=== PATIENT | male | born 1975 | race Caucasian/White ===

== ENCOUNTER 2018-09-15 10:21 | Emergency (ER) | payer BC, SELFPAY ==
--- NOTE | 2018-09-15 10:26 | W.ED.GENAD ---
Discharge Plan Disposition Patient Disposition: HOME Condition: Stable Discharge Details Chief Complaint: Abd Prob Clinical Impression: Colitis Primary Care Provider: Nicole Spaulding ED Provider: Alex Gray Home Meds and New Rx's Prescriptions: New metronidazole [Flagyl] 500 mg tablet 500 mg PO TID Qty: 21 RF: 0 ciprofloxacin HCl 500 mg tablet 500 mg PO BID Qty: 14 RF: 0 ondansetron 4 mg tablet,disintegrating 4 mg PO TID PRN (Reason: nausea and vomiting) 5 Days Qty: 30 RF: 0 No Action lamotrigine 150 MG tablet 150 mg PO DAILY RF: 0 cimetidine 800 MG tablet 800 mg PO DAILY RF: 0 aspirin 81 MG tablet,delayed release (DR/EC) 81 mg PO DAILY RF: 0 metformin [Glucophage] 1,000 MG tablet 1,000 mg PO BID RF: 0 levothyroxine [Synthroid] 150 MCG tablet 150 mcg PO DAILY RF: 0 Lantus Solostar U-100 Insulin 100 UNIT/1 ML insulin pen 100 units SQ BID RF: 0 PEN NEEDLES Sub-Q BID RF: 0 Humalog U-100 Insulin 100 UNIT/1 ML solution 15 unit SQ PRN RF: 0 atorvastatin 40 MG tablet 40 mg PO DAILY RF: 0 colchicine [Colcrys] 0.6 MG tablet 0.6 mg PO DAILY Qty: 9 RF: 0 Discharge Instructions Instructions: Colitis (ED) Additional Instructions: follow up with your primary care provider especially if symptoms continue next week if you have severe worsening of pain or persistent vomit return to the emergency department for reevaluation Medical Decision Making 43 yo male with hx of DM, HLD, no prior abdominal surgeries, comes in with chief complaint of lower abdominal pain since yesterday. No vomit, fevers, chills. CAn't think of anything that makes it better or worse, has never had pain like this before. HAs tenderness without guarding and rebound in the lower abdomen right and left sided. No testicle pain or swelling. Multiple different potential etiologies of his pain, will obtain lab work and CT to eval further pt labs show wbc of 18, otherwise no acute findings. CT per Dr. Crook shows coliits and possible diverticulitis. He is stable for outpatient management, will prescribe abx and advised f/u with pcp and return precautions given. Has only mild tenderness and no guarding and no pain out of proportion to exam so doubt ischemic colitis Differential Diagnosis diverticulitis, appendicitis, kidney stone Imaging Data Radiologic Study: Attestation: I personally reviewed and interpreted this imaging study as follows: Imaging: CT Scan Radiologist's impression: colits and possible diverticulitis per Dr. crook Lab Data Lab results reviewed: Yes I reviewed the patient's lab results. HPI General Mode of arrival: ambulatory. Date/Time Provider Initiated Documentation: 09/15/18 10:25. Limitations to Documentation: no limitations. Information obtained by: patient. History of Present Illness 43 year old M presents to the emergency department with the chief complaint of lower abdominal pain, described as moderate, with intensity rated at 6. Quality is described as stabbing and aching, and is localized to the abdomen. Patient reports no radiation. Patient started experiencing this day(s) (1) and it has been constant. No relieving factors improve symptom(s), No exacerbating factors reported . Patient notes no other symptoms.. Patient did receive the following treatments prior to arrival, none Related Data Home Medications Medication Instructions Recorded Confirmed Pen [place] SUB-Q BID 01/16/13 09/11/14 aspirin 81 mg PO DAILY tab-cap 01/16/13 09/15/18 cimetidine 800 mg PO DAILY tab-cap 01/16/13 09/15/18 insulin glargine [Lantus Solostar] 100 units SQ BID 01/16/13 09/15/18 lamotrigine 150 mg PO DAILY tab-cap 01/16/13 09/15/18 levothyroxine [Synthroid] 150 mcg PO DAILY tab-cap 01/16/13 09/15/18 metformin [Glucophage] 1,000 mg PO BID tab-cap 01/16/13 09/15/18 Humalog U-100 Insulin 15 unit SQ PRN vial 01/25/13 09/15/18 atorvastatin 40 mg PO DAILY tab-cap 07/21/16 09/15/18 colchicine [Colcrys] 0.6 mg PO DAILY #9 tab 01/10/17 09/15/18 ciprofloxacin HCl 500 mg PO BID #14 tab 09/15/18 metronidazole [Flagyl] 500 mg PO TID #21 tab 09/15/18 ondansetron 4 mg PO TID PRN 5 Days #30 tab 09/15/18 Previous Rx's Medication Instructions Recorded colchicine [Colcrys] 0.6 mg PO DAILY #9 tab 01/10/17 ciprofloxacin HCl 500 mg PO BID #14 tab 09/15/18 metronidazole [Flagyl] 500 mg PO TID #21 tab 09/15/18 ondansetron 4 mg PO TID PRN 5 Days #30 tab 09/15/18 Allergies Allergy/AdvReac Type Severity Reaction Status Date / Time No Known Allergies Allergy Unverified 09/15/18 10:31 Review of Systems Review of Systems All systems reviewed & are unremarkable except as noted in HPI and below Constitutional Denies chills, Denies fever(s) and Denies weakness Eyes Denies loss of vision ENT Denies change in voice Cardiovascular Denies chest pain and Denies dyspnea Respiratory Denies dyspnea Gastrointestinal Denies nausea and Denies vomiting Genitourinary Denies dysuria Musculoskeletal Denies joint swelling Integumentary/Breasts Denies rash Neurologic Denies loss of vision and Denies weakness Psychiatric Denies depression [facility] Surgical History Cholecystectomy Open Carpal Tunnel release Social History Smoking/Tobacco Use Status: Former Tobacco Use Exam Const General: no acute distress Orientation: alert HENMT Head: normal to inspection Ears: external ears normal General nose exam: external nose normal Mouth: moist mucous membranes Eyes General: appearance normal, both eyes and all related structures Neck Neck: normal visual inspection Resp Effort & Inspection: normal respiratory effort and able to speak in complete sentences Cardio Rate: regular rate GI Inspection: no abdominal wall ecchymosis Palpation: soft Skin General skin exam: no rashes or lesions noted Neuro General: alert and oriented x3 Extrem General: normal to inspection Psych Mental Status: mental status grossly normal
[2018-09-15 10:29] VITALS: BP 134/76; PULSE 93; RESP 16; TEMP 37.1; O2SAT 100
--- NOTE | 2018-09-15 10:35 | DI.CT_ITS ---
SYMPTOMS/DIAGNOSIS: LOWER ABDOMINAL PAIN CT SCAN OF THE ABDOMEN AND PELVIS: CT scan of the abdomen and pelvis was performed following the uneventful administration of intravenous contrast material. No priors for comparison. The visualized lung bases are clear. The liver, spleen, pancreas and adrenal glands are unremarkable. The patient is status post cholecystectomy. No biliary ductal dilatation is seen. The portal, superior mesenteric and splenic veins are patent. The abdominal aorta is of normal caliber. No significant abdominal or pelvic adenopathy, ascites or pneumoperitoneum is seen. The kidneys show normal and symmetric enhancement. No solid renal mass or obstruction is seen. The urinary bladder is intact. The reproductive organs are unremarkable. There is bowel wall thickening seen in the mid sigmoid colon. There do appear to be a few diverticula in the region. Pericolonic inflammatory changes are present. Primary diagnostic concern is for acute diverticulitis and nonspecific inflammatory infectious colitis can not be excluded. The remainder of the bowel shows no acute abnormality. There is a normal appendix present. Mild degenerative changes are seen in the spine. IMPRESSION: Findings most suggestive of colitis in the sigmoid colon. Primary diagnostic concern is for acute diverticulitis. Other nonspecific inflammatory infectious colitis can not be excluded. Follow up examination to document resolution of the inflammation is recommended in this patient. The findings were discussed with Dr. Gray of the emergency department on the date of the examination.
[2018-09-15 10:39] LABS: Bilirubin Negative (Negative); Blood Negative (Negative); Clarity Clear; Glucose 100 mg/dL (Negative); Ketones Negative (Negative); Leukocyte Esterase Negative (Negative); Nitrite Negative (Negative); Specific Gravity >= 1.030 (1.005-1.025); Urobilinogen 0.2 EU/dL (Up TO 0.2); pH 5.5 (5-8)
--- NOTE | 2018-09-15 10:40 | ED.GENADUL_ITS ---
Discharge Plan Disposition Patient Disposition: HOME Condition: Stable Discharge Details Chief Complaint: Abd Prob Clinical Impression: Colitis Primary Care Provider: Nicole Spaulding ED Provider: Alex Gray Home Meds and New Rx's Prescriptions: New metronidazole [Flagyl] 500 mg tablet 500 mg PO TID Qty: 21 RF: 0 ciprofloxacin HCl 500 mg tablet 500 mg PO BID Qty: 14 RF: 0 ondansetron 4 mg tablet,disintegrating 4 mg PO TID PRN (Reason: nausea and vomiting) 5 Days Qty: 30 RF: 0 No Action lamotrigine 150 MG tablet 150 mg PO DAILY RF: 0 cimetidine 800 MG tablet 800 mg PO DAILY RF: 0 aspirin 81 MG tablet,delayed release (DR/EC) 81 mg PO DAILY RF: 0 metformin [Glucophage] 1,000 MG tablet 1,000 mg PO BID RF: 0 levothyroxine [Synthroid] 150 MCG tablet 150 mcg PO DAILY RF: 0 Lantus Solostar U-100 Insulin 100 UNIT/1 ML insulin pen 100 units SQ BID RF: 0 PEN NEEDLES Sub-Q BID RF: 0 Humalog U-100 Insulin 100 UNIT/1 ML solution 15 unit SQ PRN RF: 0 atorvastatin 40 MG tablet 40 mg PO DAILY RF: 0 colchicine [Colcrys] 0.6 MG tablet 0.6 mg PO DAILY Qty: 9 RF: 0 Discharge Instructions Instructions: Colitis (ED) Additional Instructions: follow up with your primary care provider especially if symptoms continue next week if you have severe worsening of pain or persistent vomit return to the emergency department for reevaluation Medical Decision Making 43 yo male with hx of DM, HLD, no prior abdominal surgeries, comes in with chief complaint of lower abdominal pain since yesterday. No vomit, fevers, chills. CAn't think of anything that makes it better or worse, has never had pain like this before. HAs tenderness without guarding and rebound in the lower abdomen right and left sided. No testicle pain or swelling. Multiple different potential etiologies of his pain, will obtain lab work and CT to eval further pt labs show wbc of 18, otherwise no acute findings. CT per Dr. Crook shows coliits and possible diverticulitis. He is stable for outpatient management, will prescribe abx and advised f/u with pcp and return precautions given. Has only mild tenderness and no guarding and no pain out of proportion to exam so doubt ischemic colitis Differential Diagnosis diverticulitis, appendicitis, kidney stone Imaging Data Radiologic Study: Attestation: I personally reviewed and interpreted this imaging study as follows: Imaging: CT Scan Radiologist's impression: colits and possible diverticulitis per Dr. crook Lab Data Lab results reviewed: Yes I reviewed the patient's lab results. HPI General Mode of arrival: ambulatory . Date/Time Provider Initiated Documentation: 09/15/18 10:25 . Limitations to Documentation: no limitations . Information obtained by: patient . History of Present Illness 43 year old M pr esents to the emergency department with the chief complaint of lower abdominal pain, described as moderate, with intensity rated at 6. Quality is described as stabbing and aching, and is localized to the abdomen. Patient reports no radiation. Patient started experiencing this day(s) (1) and it has been constant. No relieving factors improve symptom(s), No exacerbating factors reported . Patient notes no other symptoms.. Patient did receive the following treatments prior to arrival, none Related Data Home Medications Medication Instructions Recorded Confirmed Pen [place] SUB-Q BID 01/16/13 09/11/14 aspirin 81 mg PO DAILY tab-cap 01/16/13 09/15/18 cimetidine 800 mg PO DAILY tab-cap 01/16/13 09/15/18 insulin glargine [Lantus Solostar] 100 units SQ BID 01/16/13 09/15/18 lamotrigine 150 mg PO DAILY tab-cap 01/16/13 09/15/18 levothyroxine [Synthroid] 150 mcg PO DAILY tab-cap 01/16/13 09/15/18 metformin [Glucophage] 1,000 mg PO BID tab-cap 01/16/13 09/15/18 Humalog U-100 Insulin 15 unit SQ PRN vial 01/25/13 09/15/18 atorvastatin 40 mg PO DAILY tab-cap 07/21/16 09/15/18 colchicine [Colcrys] 0.6 mg PO DAILY #9 tab 01/10/17 09/15/18 ciprofloxacin HCl 500 mg PO BID #14 tab 09/15/18 metronidazole [Flagyl] 500 mg PO TID #21 tab 09/15/18 ondansetron 4 mg PO TID PRN 5 Days #30 tab 09/15/18 Previous Rx's Medication Instructions Recorded colchicine [Colcrys] 0.6 mg PO DAILY #9 tab 01/10/17 ciprofloxacin HCl 500 mg PO BID #14 tab 09/15/18 metronidazole [Flagyl] 500 mg PO TID #21 tab 09/15/18 ondansetron 4 mg PO TID PRN 5 Days #30 tab 09/15/18 Allergies Allergy/AdvReac Type Severity Reaction Status Date / Time No Known Allergies Allergy Unverified 09/15/18 10:31 Review of Systems Review of Systems All systems reviewed & are unremarkable except as noted in HPI and below Constitutional Denies chills, Denies fever(s) and Denies weakness Eyes Denies loss of vision ENT Denies change in voice Cardiovascular Denies chest pain and Denies dyspnea Respiratory Denies dyspnea Gastrointestinal Denies nausea and Denies vomiting Genitourinary Denies dysuria Musculoskeletal Denies joint swelling Integumentary/Breasts Denies rash Neurologic Denies loss of vision and Denies weakness Psychiatric Denies depression [facility] Surgical History Cholecystectomy Open Carpal Tunnel release Social History Smoking/Tobacco Use Status: Former Tobacco Use Exam Const General: no acute distress Orientation: alert HENMT Head: normal to inspection Ears: external ears normal General nose exam: external nose normal Mouth: moist mucous membranes Eyes General: appearance normal, both eyes and all related structures Neck Neck: normal visual inspection Resp Effort & Inspection: normal respiratory effort and able to speak in complete sentences Cardio Rate: regular rate GI Inspection: no abdominal wall ecchymosis Palpation: soft Skin General skin exam: no rashes or lesions noted Neuro General: alert and oriented x3 Extrem General: normal to inspection Psych Mental Status: mental status grossly normal
[2018-09-15] MEDS: Normal Saline 1,000 ML 1000 ML IV (10:45)
[2018-09-15] MEDS: Ketorolac 15 MG/ML VIAL IVP (10:45)
[2018-09-15 10:48] LABS: Abs Immature Grans 0.04 k/cumm (0.0-0.09); Absolute Basophil Count 0.07 k/cumm (0.0-0.2); Absolute Eosinophil Count 0.38 k/cumm (0.0-0.7); Absolute Lymphocyte Count 1.73 k/cumm (1.2-3.4); Absolute Neutrophil Count 13.63 k/cumm (1.2-6.7); Basophils % 0.4; Eosinophils % 2.1; HCT 47.3 % (40.0-50.0); HGB 16.1 g/dL (13.5-17.5); Immature Grans % 0.2; Lymphocytes % 9.6; Mean Corpuscular Hemoglobin 29.3 pg (27.0-33.0); Mean Corpuscular Volume 86.2 fL (80-95); Mean Platelet Volume 9.5 fL (8.0-11.0); Monocytes % 12.2; Neutrophils % 75.5; Platelet Count 339 x1000/uL (130-400); RBC 5.49 m/cumm (4.50-6.00); RBC Distribution Width 13.4 % (11.8-14.1); White Blood Cell Count 18.05 k/cumm (4.4-10.8)
[2018-09-15 10:49] LABS: Bacteria Negative HPF (Negative); C & S Indicated? No; Casts Negative LPF (Negative); Crystals Negative HPF (Negative); Epithelial Cells Rare HPF (Negative); Mucus Moderate (Negative); RBC Negative (0-2); WBC 0-2 HPF (0-5)
[2018-09-15 11:01] LABS: INR 0.9 (0.9-1.1); PTT Activated 23.1 sec (21.0-31.4); Prothrombin Time 9.3 sec (9.3-11.0)
[2018-09-15 11:06] LABS: ALT 32 U/L (12-78); AST 15 U/L (15-37); Albumin 4.1 g/dL (3.4-5.0); Alkaline Phosphatase 112 U/L (46-116); Anion Gap 9.9 mmol/L (3-11); BUN 18 mg/dL (7-18); Bilirubin, Direct 0.18 mg/dL (0.00-0.20); Bilirubin, Total 0.8 mg/dL (0.2-1.0); CO2 29.1 mmol/L (21.0-32.0); CREATININE 1.53 mg/dL (0.70-1.30); Calcium 9.8 mg/dL (8.5-10.1); Chloride 103 mmol/L (98-107); Estimated GFR 50.41 (mL/min/1.73m2); Glucose 137 mg/dL (70-100); Lipase 117 U/L (73-393); Potassium 4.1 mmol/L (3.5-5.1); Sodium 142 mmol/L (136-145); Total Protein 7.9 g/dL (6.4-8.2)
[2018-09-15] MEDS: Omnipaque 350 MG/ML 100 ML BTL IJ (11:18)
[2018-09-15 11:44] VITALS: BP 124/59; PULSE 83; RESP 16; TEMP 37.1; O2SAT 96
== END 2018-09-15 11:44 | disposition home or self-care (01) ==
PROVIDERS: Emergency Provider Emergency Medicine; PCP Nurse Practitioner Family
DX: K52.9 Noninfective gastroenteritis and colitis, unspecified (principal)
CPT/HCPCS: 36415; 80053; 80076; 83690; 96361; 96374; 99285; 74177; 81003; 81015; 85025; 85610; 85730; 99284; J1885; J3490

== ENCOUNTER 2018-10-27 19:51 | Emergency (ER) | payer BC, SELFPAY ==
[2018-10-27 19:58] VITALS: BP 126/63; PULSE 89; RESP 20; TEMP 36.8; O2SAT 90
[2018-10-27 20:04] VITALS: RESP 84; O2SAT 95
--- NOTE | 2018-10-27 20:06 | DI.RAD_ITS ---
SYMPTOM/DIAGNOSIS: COUGH PA AND LATERAL CHEST: There are no prior comparison exams. The heart size is normal. There are patchy infiltrates seen in the right upper and middle lobes. The left lung appears clear. No effusions are seen. IMPRESSION: Right upper and middle lobe infiltrates.
--- NOTE | 2018-10-27 20:07 | ED.GENADUL_ITS ---
Discharge Plan Disposition Patient Disposition: HOME Condition: Stable Discharge Details Chief Complaint: Chest/Rib Clinical Impression: Influenza, CAP (community acquired pneumonia) Primary Care Provider: Nicole Spaulding ED Provider: Alex Gray Home Meds and New Rx's Prescriptions: New oseltamivir 75 mg capsule 75 mg PO BID 5 Days Qty: 10 RF: 0 levofloxacin 750 mg tablet 750 mg PO DAILY 6 Days Qty: 6 RF: 0 Continued lamotrigine 150 MG tablet 150 mg PO DAILY RF: 0 cimetidine 800 MG tablet 800 mg PO DAILY RF: 0 aspirin 81 MG tablet,delayed release (DR/EC) 81 mg PO DAILY RF: 0 metformin [Glucophage] 1,000 MG tablet 1,000 mg PO BID RF: 0 levothyroxine [Synthroid] 150 MCG tablet 150 mcg PO DAILY RF: 0 Lantus Solostar U-100 Insulin 100 UNIT/1 ML insulin pen 100 units SQ BID RF: 0 PEN NEEDLES Sub-Q BID RF: 0 Humalog U-100 Insulin 100 UNIT/1 ML solution 15 unit SQ PRN RF: 0 atorvastatin 40 MG tablet 40 mg PO DAILY RF: 0 colchicine [Colcrys] 0.6 MG tablet 0.6 mg PO DAILY Qty: 9 RF: 0 Discharge Instructions Instructions: Influenza (ED), Community Acquired Pneumonia (ED) Additional Instructions: follow up with your primary care provider within a week drink fluids to stay hydrated if you feel you are becoming more ill, have more shortness of breath or persistent vomit return to the emergency department you can take 1000mg tylenol and 600mg ibuprofen every 6 hours for pain as needed Medical Decision Making 43 yo male with hx of DM, hld, who comes in with about a week of worsening cough, subjective fevers/chills. Denies recent travel, only has chest pain when coughing, denies pain with exertion or other symptoms to suggest acs. He is speaking in full sentences on exam, does have crackles in the right lower lung on exam making CAP likely. Will obtain labs and chest xray and eval for influenza. He is HD stable with o2 sat of 96% on room air on my exam. He has no evidence of dvt and symptoms seem infectious so doubt PE at this time pt's labs show ro[place], wbc of 14, and xray shows right pna and influenza test is postive. He remains HD stable. He would prefer outpatient management rather than admission which I feel is reasonable. Will start abx and tamiflu and advised f/u with pcp and return precuaitons given Differential Diagnosis pna, influenza, bronchitis Imaging Data Radiologic Study: Attestation: I personally reviewed and interpreted this imaging study as follows: Imaging: X-Ray Radiologist's impression: IMPRESSION: Patchy airspace disease, right middle and probably right lower lobes. Most likely pneumonia. Lab Data Lab results reviewed: Yes I reviewed the patient's lab results. HPI General Mode of arrival: ambulatory . Date/Time Provider Initiated Documentation: 10/27/18 19:56 . Limitations to Documentation: no limitations . Information obtained by: patient . History of Present Illness 43 year old M presents to the emergency department with the chief complaint of cough, described as moderate, with intensity rated at 5. Quality is described as aching, and is localized to the chest. Patient reports no radiation. Patient started experiencing this week(s) (1) and it has been constant. No relieving factors improve symptom(s), No exacerbating factors reported . Patient notes fever/chills. Patient did receive the following treatments prior to arrival, none Related Data Home Medications Medication Instructions Recorded Confirmed Lantus Solostar U-100 Insulin 100 units SQ BID 01/16/13 10/27/18 Pen [place] SUB-Q BID 01/16/13 09/11/14 aspirin 81 mg PO DAILY tab-cap 01/16/13 10/27/18 cimetidine 800 mg PO DAILY tab-cap 01/16/13 10/27/18 lamotrigine 150 mg PO DAILY tab-cap 01/16/13 10/27/18 levothyroxine [Synthroid] 150 mcg PO DAILY tab-cap 01/16/13 10/27/18 metformin [Glucophage] 1,000 mg PO BID tab-cap 01/16/13 10/27/18 Humalog U-100 Insulin 15 unit SQ PRN vial 01/25/13 10/27/18 atorvastatin 40 mg PO DAILY tab-cap 07/21/16 10/27/18 colchicine [Colcrys] 0.6 mg PO DAILY #9 tab 01/10/17 09/15/18 levofloxacin 750 mg PO DAILY 6 Days #6 tab 10/27/18 oseltamivir 75 mg PO BID 5 Days #10 cap 10/27/18 Previous Rx's Medication Instructions Recorded colchicine [Colcrys] 0.6 mg PO DAILY #9 tab 01/10/17 levofloxacin 750 mg PO DAILY 6 Days #6 tab 10/27/18 oseltamivir 75 mg PO BID 5 Days #10 cap 10/27/18 Allergies Allergy/AdvReac Type Severity Reaction Status Date / Time No Known Allergies Allergy Unverified 09/15/18 10:31 General Stated Complaint: Chest/Rib RENÉ: 3 Review of Systems Review of Systems All systems reviewed & are unremarkable except as noted in HPI and below Constitutional Denies weakness Eyes Denies loss of vision ENT Denies change in voice Gastrointestinal Denies abdominal pain, Denies nausea and Denies vomiting Genitourinary Denies dysuria Musculoskeletal Denies joint swelling Integumentary/Breasts Denies rash Neurologic Denies loss of vision and Denies weakness Psychiatric Denies depression Endocrine Denies cold intolerance and Denies heat intolerance Allergic/Immunologic Denies urticaria PFSH Social History Smoking and Tabacco status: Former Tobacco Use Exam Const General: no acute distress Orientation: alert HENMT Head: normal to inspection Ears: external ears normal General nose exam: external nose normal Mouth: moist mucous membranes Eyes General: appearance normal, both eyes and all related structures Neck Neck: normal visual inspection Resp Effort & Inspection: normal respiratory effort and able to speak in complete sentences Cardio Rate: regular rate Skin General skin exam: no rashes or lesions noted Neuro General: alert and oriented x3 Extrem General: normal to inspection Psych Mental Status: mental status grossly normal Course Vital Signs Temperature 36.8 C 10/27/18 19:58 Pulse 89 10/27/18 19:58 Respiratory Rate 20 10/27/18 19:58 Blood Pressure 126/63 10/27/18 19:58 Pulse Oximetry 90 L 10/27/18 19:58 Temperature 36.8 C 10/27/18 19:58 Temperature Source Temporal Artery Scan 10/27/18 19:58 Pulse 89 10/27/18 19:58 Respiratory Rate 84 H 10/27/18 20:04 Blood Pressure 126/63 10/27/18 19:58 Blood Pressure Position Sitting 10/27/18 19:58 Pulse Oximetry 95 10/27/18 20:04 Oxygen Delivery Method Room Air 10/27/18 20:04 Oxygen Flow Rate 0 10/27/18 20:04
[2018-10-27] MEDS: Normal Saline 1,000 ML 1000 ML IV (20:20)
[2018-10-27 20:31] LABS: Abs Immature Grans 0.04 k/cumm (0.0-0.09); Absolute Lymphocyte Count 1.52 k/cumm (1.2-3.4); Basophils % 0.1; Eosinophils % 0.3; HCT 42.7 % (40.0-50.0); HGB 14.1 g/dL (13.5-17.5); Immature Grans % 0.3; Lymphocytes % 10.4; Mean Corpuscular Hemoglobin 29.4 pg (27.0-33.0); Mean Platelet Volume 9.5 fL (8.0-11.0); Neutrophils % 79.9; Platelet Count 244 x1000/uL (130-400); White Blood Cell Count 14.59 k/cumm (4.4-10.8)
[2018-10-27 20:33] LABS: Absolute Basophil Count 0.01 k/cumm (0.0-0.2); Absolute Eosinophil Count 0.04 k/cumm (0.0-0.7); Absolute Monocyte Count 1.31 k/cumm (0.11-0.7); Absolute Neutrophil Count 11.66 k/cumm (1.2-6.7)
[2018-10-27] MEDS: Ibuprofen 600 MG TAB (20:41)
[2018-10-27 20:47] LABS: ALT 62 U/L (12-78); AST 52 U/L (15-37); Albumin 3.4 g/dL (3.4-5.0); Alkaline Phosphatase 79 U/L (46-116); Anion Gap 6.2 mmol/L (3-11); BUN 27 mg/dL (7-18); Bilirubin, Total 0.9 mg/dL (0.2-1.0); CO2 32.8 mmol/L (21.0-32.0); CREATININE 1.95 mg/dL (0.70-1.30); Calcium 8.4 mg/dL (8.5-10.1); Chloride 101 mmol/L (98-107); Glucose 185 mg/dL (70-100); Potassium 3.4 mmol/L (3.5-5.1); Sodium 140 mmol/L (136-145); Total Protein 6.6 g/dL (6.4-8.2)
[2018-10-27 21:03] VITALS: BP 140/76; PULSE 83; RESP 24; O2SAT 94
--- NOTE | 2018-10-27 21:13 | DI.VRAD_ITS ---
EXAM: XR Chest, 2 Views EXAM DATE/TIME: 10/27/2018 8:06 PM CLINICAL HISTORY: 43 years old, male; Signs and symptoms; Cough TECHNIQUE: XR of the chest, 2 views. COMPARISON: No relevant prior studies available. FINDINGS: Lungs: Patchy airspace disease, right middle and probably right lower lobes. Pleural space: No pleural effusion. No pneumothorax. Heart/Mediastinum: No cardiomegaly. Bones/joints: No acute fracture. Soft tissues: Nodular density projects over the left lung base measuring 11 mm, nipple shadow versus granuloma versus lesion in the superimposed rib. Probably benign. IMPRESSION: Patchy airspace disease, right middle and probably right lower lobes. Most likely pneumonia. Dictated and Authenticated by: Cecilia Barksdale MD. Ordering:MILADYS Johnson MD
[2018-10-27] MEDS: LEVOFLOXACIN 500 MG, LEVOFLOXACIN 250 MG 750 MG PO (21:25)
[2018-10-27] MEDS: Oseltamivir 75 MG CAP PO (21:25)
[2018-10-27 21:29] VITALS: BP 134/64; PULSE 84; RESP 20; O2SAT 95
== END 2018-10-27 21:40 | disposition home or self-care (01) ==
PROVIDERS: Emergency Provider Emergency Medicine; PCP Nurse Practitioner Family
DX: J10.00 Influenza due to other identified influenza virus with unspecified type of pneumonia (principal); E11.9 Type 2 diabetes mellitus without complications; Z79.4 Long term (current) use of insulin; Z87.891 Personal history of nicotine dependence
CPT/HCPCS: 36415; 80053; 87449; 96360; 99283; 71046; 85025; J3490

== ENCOUNTER 2018-11-03 21:30 | Outpatient (REF) | payer BC, SELFPAY ==
[2018-11-03 22:21] LABS: BUN 18 mg/dL (7-18); CREATININE 1.32 mg/dL (0.70-1.30); Calcium 9.3 mg/dL (8.5-10.1); Chloride 98 mmol/L (98-107); Estimated GFR 59.77 (mL/min/1.73m2); Glucose 346 mg/dL (70-100); Sodium 136 mmol/L (136-145)
== END 2018-11-03 21:50 ==
LOC: NCHCN 21:30
PROVIDERS: PCP Nurse Practitioner Family; Visit Provider Nurse Practitioner Family
DX: J18.9 Pneumonia, unspecified organism (principal); J11.1 Influenza due to unidentified influenza virus with other respiratory manifestations
CPT/HCPCS: 80048

== ENCOUNTER 2018-12-08 00:09 | Outpatient (CLI) | payer BC, SELFPAY ==
--- NOTE | 2018-12-08 15:55 | DI.RAD_ITS ---
SYMPTOMS/DIAGNOSIS: PNEUMONIA, J18.9 PA AND LATERAL CHEST: Examination is compared to previous examination of 10/27/18, which showed right- sided intrapulmonary infiltrates. On today's examination, the abnormalities have resolved and the lungs are clear. No pleural effusions seen. Cardiac size remains within normal limits. CONCLUSION: No evidence of acute disease.
== END 2018-12-08 00:29 ==
PROVIDERS: PCP Nurse Practitioner Family; Visit Provider Nurse Practitioner Family
DX: J18.9 Pneumonia, unspecified organism (principal)
CPT/HCPCS: 71046

== ENCOUNTER 2019-04-20 14:56 | Emergency (ER) | payer OTHER, SELFPAY ==
[2019-04-20 14:58] VITALS: BP 120/70; PULSE 92; RESP 16; TEMP 36.6; O2SAT 97
--- NOTE | 2019-04-20 15:21 | DI.US_ITS ---
SYMPTOM/DIAGNOSIS: RT TESTICULAR PAIN, SWELLING TESTICULAR ULTRASOUND: Routine examination was performed. The right testicle measures 4.6 by 2.5 by 4.1 cm. It is homogeneous with normal blood flow. No evidence of intratesticular mass or torsion. The right epididymis is unremarkable. There is a small hydrocele present. The left testicle measures 4.2 by 2.8 by 3.9 cm. It is homogeneous sonographically. No evidence of an intratesticular mass or torsion. The left epididymis is unremarkable. There is a small hydrocele. IMPRESSION: Small bilateral hydroceles. No evidence of torsion or intratesticular mass.
[2019-04-20] MEDS: Ibuprofen 600 MG TAB PO (15:30)
[2019-04-20 16:01] LABS: Bilirubin Negative (Negative); Blood Negative (Negative); Clarity Clear (Clear); Glucose Negative (Negative); Ketones Negative (Negative); Leukocyte Esterase Negative (Negative); Nitrite Negative (Negative); Specific Gravity >= 1.030 (1.005-1.025); Urobilinogen 0.2 EU/dL (Up TO 0.2); pH 5.5 (5-8)
[2019-04-20 16:13] LABS: Bacteria Negative HPF (Negative); C & S Indicated? No; Casts Negative LPF (Negative); Crystals Negative HPF (Negative); Epithelial Cells Negative HPF (Negative); Mucus Trace (Negative); Other Cells Few Renal (Negative); RBC Negative (0-2); WBC 0-2 HPF (0-5)
--- NOTE | 2019-04-20 16:19 | ED.GENADUL_ITS ---
Discharge Plan Disposition Patient Disposition: HOME Discharge Details Chief Complaint: Urinary Primary Care Provider: Nicole Spaulding ED Provider: Dennis Ortiz Home Meds and New Rx's Prescriptions: New acetaminophen [Mapap Extra Strength] 500 MG tablet 1,000 mg PO Q6H 5 Days Qty: 60 RF: 0 ibuprofen [Motrin IB] 200 MG tablet 600 mg PO Q6H 5 Days Qty: 60 RF: 0 doxycycline hyclate 100 mg tablet 100 mg PO BID 14 Days Qty: 28 RF: 0 No Action lamotrigine 150 MG tablet 150 mg PO DAILY RF: 0 cimetidine 800 MG tablet 800 mg PO DAILY RF: 0 aspirin 81 MG tablet,delayed release (DR/EC) 81 mg PO DAILY RF: 0 metformin [Glucophage] 1,000 MG tablet 1,000 mg PO BID RF: 0 levothyroxine [Synthroid] 150 MCG tablet 150 mcg PO DAILY RF: 0 Lantus Solostar U-100 Insulin 100 UNIT/1 ML insulin pen 85 units SQ BID RF: 0 PEN NEEDLES Sub-Q BID RF: 0 insulin lispro [Humalog U-100 Insulin] 100 UNIT/1 ML solution 15 unit SQ PRN RF: 0 atorvastatin 40 MG tablet 40 mg PO DAILY RF: 0 Discharge Data Discharge Date/Time-TO BE ENTERED AT DEPARTURE: 04/20/19 17:39 Medical Decision Making <Victorino Ritter NP - Last Filed: 04/24/19 10:07> Patient presenting to the emergency department for chief complaint of swelling to right testicle that started yesterday at 10 AM when he was lifting something heavy. Physical exam shows intact cremaster reflex right testicular tenderness, and right testicular swelling. Testicle is not high riding and no inguinal tenderness. No evidence of Jorden's gangrene, no inguinal mass, no high riding testicle. Plan to do urine and ultrasound pending results patient given ibuprofen. <Dennis Ortiz DO - Last Filed: 04/21/19 16:20> Case was signed out to me by my colleague Victorino Ritter, pending ultrasound results. Repeat testicular exam demonstrates normal cremasteric reflex bilaterally, no edema of the scrotum. Minimal tenderness at the base of the right testicle. No evidence of significant abnormality. Signs and symptoms are clinically inconsistent with testicular torsion, Jorden's gangrene, or other significant abnormality. Currently the patient's pain is notably resolved. At this time I feel that his pain may be secondary to his small bilateral hydroceles which was the only finding noted on the ultrasonography. Virtual radiology does not show any other abnormalities, no evidence of torsion. We will recommend NSAIDs, tight fitting underwear, and close follow-up. Urinalysis is negative for infection. The patient denies any history of STDs or any behavior that would procure him to STDs. Recommend holding off on antibiotic use unless he has no improvement of his symptoms. If his symptoms do not improve he may have very mild epididymitis for which doxycycline may be of benefit although unlikely. We discussed red flags which to return, the importance of close follow-up with his PCP, the importance of appropriate conservative therapy for this. I have extensively reviewed the treatment plan and discharge instructions with the patient and their family. I have addressed all patient concerns at this time. The patient and family was made aware of what symptoms to monitor for that would warrant a return to the emergency department. Discussed the plan with the patient and family, they demonstrate verbal understanding and agreement with our assessment and plan at this time. FINDINGS: Right Testicle: Normal. No mass. No torsion. Normal vascular flow. Left Testicle: Normal. No mass. No torsion. Normal vascular flow. Epididymides: Normal. Scrotum: Small bilateral hydroceles. IMPRESSION: Small bilateral hydroceles. Thank you for allowing us to participate in the care of your patient. Dictated and Authenticated by: Twan Shea MD <DEVANTE Sanchez - Last Filed: 04/21/19 09:40> Following day, patient called requesting work note to return 04/24/19 instead of . This was given. HPI <Victorino Ritter NP - Last Filed: 04/24/19 10:07> General Mode of arrival: ambulatory . Date/Time Provider Initiated Documentation: 04/20/19 15:05 . Limitations to Documentation: no limitations . Information obtained by: patient and RN notes reviewed . History of Present Illness 44 year old M presents to the emergency department with the chief complaint of Right testicle pain, described as moderate, with intensity rated at 7. Quality is described as aching and sharp, and is localized to the genitals and right. Patient started experiencing this day(s) (1-yesterday at 10 AM) and it has been constant. No relieving factors improve symptom(s), Other factors that worsen symptoms (Heavy lifting) . Patient notes no other symptoms.. Patient did receive the following treatments prior to arrival, none Related Data Home Medications Medication Instructions Recorded Confirmed Lantus Solostar U-100 Insulin 85 units SQ BID 01/16/13 04/20/19 Pen [place] SUB-Q BID 01/16/13 09/11/14 aspirin 81 mg PO DAILY tab-cap 01/16/13 04/20/19 cimetidine 800 mg PO DAILY tab-cap 01/16/13 04/20/19 lamotrigine 150 mg PO DAILY tab-cap 01/16/13 04/20/19 levothyroxine [Synthroid] 150 mcg PO DAILY tab-cap 01/16/13 04/20/19 metformin [Glucophage] 1,000 mg PO BID tab-cap 01/16/13 04/20/19 insulin lispro [Humalog U-100 15 unit SQ PRN vial 01/25/13 04/20/19 Insulin] atorvastatin 40 mg PO DAILY tab-cap 07/21/16 04/20/19 acetaminophen [Mapap Extra 1,000 mg PO Q6H 5 Days #60 tab 04/20/19 Strength] doxycycline hyclate 100 mg PO BID 14 Days #28 tab 04/20/19 ibuprofen [Motrin Ib] 600 mg PO Q6H 5 Days #60 tab 04/20/19 Previous Rx's Medication Instructions Recorded acetaminophen [Mapap Extra 1,000 mg PO Q6H 5 Days #60 tab 04/20/19 Strength] doxycycline hyclate 100 mg PO BID 14 Days #28 tab 04/20/19 ibuprofen [Motrin Ib] 600 mg PO Q6H 5 Days #60 tab 04/20/19 Allergies Allergy/AdvReac Type Severity Reaction Status Date / Time No Known Allergies Allergy Unverified 04/20/19 15:02 General Stated Complaint: Urinary RENÉ: 3 Review of Systems <Victorino Ritter NP - Last Filed: 04/24/19 10:07> Constitutional Denies chills, Denies fever(s) and Denies malaise Cardiovascular Denies chest pain Respiratory Reports system reviewed and no additional complaints, except as docu Gastrointestinal Denies abdominal pain, Denies change in bowel habits, Denies constipation, Denies nausea and Denies vomiting Genitourinary Reports as per HPI, Denies hematuria, Denies difficulty urinating, Denies dysuri a, Denies penile discharge, Reports scrotal swelling, Reports testicular pain and Denies urinary urgency PFSH <Victorino Ritter NP - Last Filed: 04/24/19 10:07> Surgical History Cholecystectomy Open Carpal Tunnel release Social History Smoking/Tobacco Use Status: Former Tobacco Use Alcohol Intake: current Alcohol Intake frequency: a few times a month Drug use: Never Do you feel safe at home: Yes Do you feel safe in your relationship?: Yes Exam <Victorino Ritter NP - Last Filed: 04/24/19 10:07> Const General: cooperative and no acute distress Orientation: alert, awake and oriented x3 Resp Effort & Inspection: normal respiratory effort and able to speak in complete sentences Auscultation: clear to auscultation bilaterally Cardio Rate: regular rate Rhythm: regular rhythm Heart Sounds: S1 normal and S2 normal GI Palpation: not firm, no guarding, no hernias, no masses, not rigid and nontender Penis: normal penis Meatus: meatus normal Scrotum: cremasteric reflex present, no ecchymosis, not erythematous and no inguinal hernias Testes: enlarged on the right, testicular swelling on the right and testicular tenderness on the right Back/Spine/Pelvis Back: no CVA tenderness Neuro General: alert, awake and oriented x3 Extrem General: normal capillary refill Course <Victorino Ritter NP - Last Filed: 04/24/19 10:07> Vital Signs Temperature 36.6 C 04/20/19 14:58 Pulse 92 H 04/20/19 14:58 Respiratory Rate 16 04/20/19 14:58 Blood Pressure 120/70 04/20/19 14:58 Pulse Oximetry 97 04/20/19 14:58 Temperature 36.6 C 04/20/19 14:58 Temperature Source Skin 04/20/19 14:58 Pulse 92 H 04/20/19 14:58 Respiratory Rate 16 04/20/19 14:58 Respiratory Effort Non-Labored 04/20/19 15:04 Blood Pressure 120/70 04/20/19 14:58 Blood Pressure Position Sitting 04/20/19 14:58 Pulse Oximetry 97 04/20/19 14:58 Oxygen Delivery Method Room Air 04/20/19 14:58 Oxygen Flow Rate 0 04/20/19 14:58 Pain Level 6 04/20/19 15:30 Lab/Test Results Lab/Test Results: Laboratory Tests Range/Units 04/20/19 15:57 Urine Color (Yellow) Yellow Urine Clarity (Clear) Clear Urine pH (5-8) 5.5 Ur Specific [place] (1.005-1.025) >= 1.030 H Urine Protein (Negative) mg/dL 30 H Urine Ketones (Negative) mg/dL Negative Urine Blood (Negative) Negative Urine Nitrite (Negative) Negative Urine Bilirubin (Negative) Negative Urine Urobilinogen (Up TO 0.2) EU/dL 0.2 Ur Leukocyte Esterase (Negative) Negative Urine RBC (0-2) Negative Urine WBC (0-5) HPF 0-2 Ur Epithelial Cells (Negative) HPF Negative Urine Crystals (Negative) HPF Negative Urine Bacteria (Negative) HPF Negative Urine Casts (Negative) LPF Negative Urine Mucus (Negative) Trace Urine Other (Negative) Few renal Ur Culture Indicated? No Urine Glucose (Negative) mg/dL Negative Sign Out <Victorino Ritter NP - Last Filed: 04/24/19 10:07> Sign Out Data: Sign Out Comment: Patient signed out to Dr. Zachary Ortiz pending ultrasound imaging of right testicle for testicular pain. Last updated by Victorino Ritter NP at 04/20/19 16:22
--- NOTE | 2019-04-20 16:56 | DI.VRAD_ITS ---
EXAM: US Scrotum EXAM DATE/TIME: 04/20/2019 4:26 PM CLINICAL HISTORY: 44 years old, male; Scrotum pain TECHNIQUE: Imaging protocol: Real-time ultrasound of the scrotum and contents with color Doppler and image documentation. COMPARISON: No relevant prior studies available. FINDINGS: Right Testicle: Normal. No mass. No torsion. Normal vascular flow. Left Testicle: Normal. No mass. No torsion. Normal vascular flow. Epididymides: Normal. Scrotum: Small bilateral hydroceles. IMPRESSION: Small bilateral hydroceles. Dictated and Authenticated by: Twan Shea MD. Ordering:YONI Gleason MD
== END 2019-04-20 17:39 | disposition home or self-care (01) ==
PROVIDERS: Nurse Practitioner Family; Emergency Provider Student in an Organized Health Care Education/Training Program; PCP Nurse Practitioner Family
DX: N50.82 Scrotal pain (principal); X50.0XXA Overexertion from strenuous movement or load, initial encounter; N43.3 Hydrocele, unspecified
CPT/HCPCS: 99284; 76870; 81003; 81015

== ENCOUNTER 2019-06-22 17:03 | Outpatient (REF) | payer SELFPAY ==
[2019-06-22 21:31] LABS: Anion Gap 12.9 mmol/L (3-11); BUN 21 mg/dL (7-18); CO2 25.1 mmol/L (21.0-32.0); CREATININE 1.41 mg/dL (0.70-1.30); Calcium 9.8 mg/dL (8.5-10.1); Chloride 103 mmol/L (98-107); Estimated GFR 55.12 (mL/min/1.73m2); Glucose 132 mg/dL (70-100); Potassium 3.6 mmol/L (3.5-5.1); Sodium 141 mmol/L (136-145); TSH (W/Ref FT4) 13.85 uIU/mL (0.36-3.74)
[2019-06-22 21:48] LABS: FREE T4 0.93 ng/dL (0.76-1.46)
== END 2019-06-22 17:23 ==
LOC: NCHCN 17:03
PROVIDERS: PCP Nurse Practitioner Family; Visit Provider Nurse Practitioner Family
DX: E03.9 Hypothyroidism, unspecified (principal); E11.9 Type 2 diabetes mellitus without complications; N18.1 Chronic kidney disease, stage 1
CPT/HCPCS: 80048; 84439; 84443

== ENCOUNTER 2020-02-27 17:27 | Outpatient (REF) | payer SELFPAY ==
[2020-02-27 21:28] LABS: ALT 64 U/L (16-63); AST 30 U/L (15-37); Albumin 4.6 g/dL (3.4-5.0); Alkaline Phosphatase 120 U/L (46-116); Anion Gap 15.9 mmol/L (3-11); BUN 31 mg/dL (7-18); Bilirubin, Total 0.6 mg/dL (0.2-1.0); CO2 24.1 mmol/L (21.0-32.0); CREATININE 1.44 mg/dL (0.70-1.30); Calcium 10.2 mg/dL (8.5-10.1); Chloride 100 mmol/L (98-107); Cholesterol 226 mg/dL (<200); Estimated GFR 53.54 (mL/min/1.73m2); Glucose 120 mg/dL (74-106); HDL Cholesterol 34 mg/dL (40-60); Potassium 3.9 mmol/L (3.5-5.1); Sodium 140 mmol/L (136-145); TSH 3.52 uIU/mL (0.36-3.74); Total Protein 7.6 g/dL (6.4-8.2); Triglyceride 409 mg/dL (<150)
[2020-02-27 21:43] LABS: LDL CHOLESTEROL 121 mg/dL (<100)
== END 2020-02-27 17:47 ==
LOC: NCHCN 17:27
PROVIDERS: PCP Nurse Practitioner Family; Visit Provider Physician Assistant
DX: E11.9 Type 2 diabetes mellitus without complications (principal); E03.9 Hypothyroidism, unspecified
CPT/HCPCS: 80053; 80061; 83721; 84443

== ENCOUNTER 2020-10-04 12:01 | Emergency (ER) | payer OTHER, SELFPAY ==
[2020-10-04 12:11] VITALS: BP 129/75; PULSE 75; RESP 18; TEMP 36.9; O2SAT 100
--- NOTE | 2020-10-04 12:13 | ED.GENADUL_ITS ---
Discharge Plan Disposition Patient Disposition: HOME Condition: Good Discharge Details Clinical Impression: Contusion of left shoulder, Neck pain Primary Care Provider: Nicole Spaulding ED Provider: Alcira Reddy Home Meds and New Rx's Prescriptions: Continued lamotrigine 150 MG tablet 150 mg PO DAILY RF: 0 cimetidine 800 MG tablet 800 mg PO DAILY RF: 0 aspirin 81 MG tablet,delayed release (DR/EC) 81 mg PO DAILY RF: 0 metformin [Glucophage] 1,000 MG tablet 1,000 mg PO BID RF: 0 levothyroxine [Synthroid] 150 MCG tablet 150 mcg PO DAILY RF: 0 Lantus Solostar U-100 Insulin 100 UNIT/1 ML insulin pen 85 units SQ BID RF: 0 PEN NEEDLES Sub-Q BID RF: 0 insulin lispro [Humalog U-100 Insulin] 100 UNIT/1 ML solution 15 unit SQ PRN RF: 0 atorvastatin 40 MG tablet 40 mg PO DAILY RF: 0 Discharge Instructions Instructions: Contusion in Adults (ED), Neck Pain (ED) Additional Instructions: Your imaging today is reassuring without any evidence to suggest fracture or dislocation. Please continue to ice the area to help with pain. Encourage gentle range of motion of the shoulder as we discussed. You may continue with Tylenol and/or ibuprofen as needed for discomfort. Please take as directed on the bottle. You may also continue with topical patches of Lidoderm patches to help with pain. These are available [id number]. Please follow-up with your primary care provider next week for reevaluation. Please avoid heavy lifting or activities that cause increased pain. If you develop any weakness, sensory changes, headache, vomiting or other new/worsening symptoms please seek care urgently once again. Referrals: Nicole Spaulding [Primary Care Provider] - Medical Decision Making Patient is a pleasant 45-year-old [id number] male presents today with chief complaint of neck and left shoulder pain. He reports that approximately 3 hours prior to arrival he fell when he slipped on some ice at work. He states that he fell landing on his neck and left shoulder. Is unclear if he struck his head. States that initially was not having any headache but states that this has been developing since his arrival in the ED. He denies any loss of consciousness. No nausea or vomiting. Denies any visual changes. Has not noted any focal weakness. Was able to get himself up and ambulate away from the scene. States he has been fairly sedentary since the fall. His neck pain has been increasing. He indicates the midline cervical spine as area of discomfort. Also reports landing on the posterior aspect of the left shoulder. Denies any numbness or tingling. On exam, patient is resting comfortably. He is neurologically intact. I do not appreciate any evidence to suggest cranial fracture. No hemotympanum. No palpable fractures. He is fairly diffusely tender of the cervical spine. Pain is maximal over the C6 region. Pain more so on the left side. Range of motion was not assessed with this midline tenderness. Patient was placed in a cervical collar. He does have some tenderness over the AC joint to the left shoulder as well as the upper aspect of the left scapula. External/internal rotation is intact but he does have limited for extension. 2+ distal pulses, axillary exam is intact. Plan for CT imaging of the head and neck. We will also obtain x-ray of the patient's left shoulder. Has not had anything for his discomfort. Plan to give Tylenol, ibuprofen and a Lidoderm patch. FINDINGS: BONES: No acute fracture is present. No bony destructive lesion is seen. A benign-appearing cyst is seen in the humeral head. JOINTS: No dislocation present. Degenerative changes are seen at the acromioclavicular joint. SOFT TISSUE: Normal. IMPRESSION: No acute fracture or dislocation. Contacted by radiologist. He advised that CT of head/neck is negative. Reevaluated the patient. Remove c-collar. At this time, his midline tenderness has resolved. He has good range of motion of his neck without discomfort. Cervical collar was cleared. Patient I discussed contusions likely source of discomfort. Encourage gentle stretching activities. He is feeling improved with Tylenol and ibuprofen. Advised that he may continue with this as well topical options to help with discomfort. I advised follow-up with primary care next week for reevaluation. Return precautions were discussed. All his questions and concerns were a ddressed and he is in agreement with this plan. HPI General Mode of arrival: ambulatory . Date/Time Provider Initiated Documentation: 10/04/20 12:12 . Limitations to Documentation: no limitations . Information obtained by: patient and RN notes reviewed . History of Present Illness 45 year old M presents to the emergency department with the chief complaint of neck pain, described as severe, with intensity rated at 10. Quality is described as aching, and is localized to the neck. Patient reports no radiation. Patient started experiencing this hour(s) (3) and it has been constant. Immobilization improves symptom(s), Movement worsens symptoms . Patient notes no other symptoms.. Patient did receive the following treatments prior to arrival, none Related Data Home Medications Medication Instructions Recorded Confirmed Lantus Solostar U-100 Insulin 85 units SQ BID 01/16/13 10/04/20 Pen [place] SUB-Q BID 01/16/13 09/11/14 aspirin 81 mg PO DAILY tab-cap 01/16/13 10/04/20 cimetidine 800 mg PO DAILY tab-cap 01/16/13 10/04/20 lamotrigine 150 mg PO DAILY tab-cap 01/16/13 10/04/20 levothyroxine [Synthroid] 150 mcg PO DAILY tab-cap 01/16/13 10/04/20 metformin [Glucophage] 1,000 mg PO BID tab-cap 01/16/13 10/04/20 insulin lispro [Humalog U-100 15 unit SQ PRN vial 01/25/13 10/04/20 Insulin] atorvastatin 40 mg PO DAILY tab-cap 07/21/16 10/04/20 Allergies Allergy/AdvReac Type Severity Reaction Status Date / Time No Known Allergies Allergy Unverified 10/04/20 12:13 General RENÉ: 3 Review of Systems Constitutional Constitutional: Reports as per HPI, Denies chills, Denies fatigue, Denies fever(s), Reports headache(s) (states he just started to get CANTU) and Denies weakness Eyes Eyes: Reports as per HPI, Denies blurry vision, Denies change in vision and Denies loss of vision ENT Ears, Nose, Mouth, and Throat: Denies abnormal hearing and Reports headache(s) (states he just started to get CANTU) Cardiovascular Cardiovascular: Reports as per HPI, Denies chest pain and Denies dyspnea Respiratory Respiratory: Reports as per HPI, Denies cough, Denies pain on inspiration, Denies pain with cough and Denies dyspnea Gastrointestinal Gastrointestinal: Reports as per HPI, Denies abdominal pain, Denies nausea and Denies vomiting Genitourinary Genitourinary: Reports as per HPI and Denies urinary incontinence Musculoskeletal Musculoskeletal: Reports as per HPI Integumentary/Breasts Skin/Breast: Reports as per HPI and Denies rash Neurologic Neurologic: Reports as per HPI, Denies abnormal hearing, Denies abnormal movements, Denies abnormal speech, Reports headache(s) (states he just started to get CANTU), Denies lack of coordination, Denies localized weakness, Denies loss of vision, Denies seizure-like activity, Denies paresthesias and Denies weakness Endocrine Endocrine: Denies fatigue PFSH Surgical History Cholecystectomy Open Carpal Tunnel release R Social History Smoking/Tobacco Use Status: Former Tobacco Use Smoking risk assessment performed?: Yes Alcohol Intake: current Alcohol Intake frequency: a few times a month Drug use: Never Substance use type: does not use Do you feel safe at home: Yes Do you feel safe in your relationship?: Yes Exam Const General: cooperative, healthy appearing, comfortable, no acute distress, well developed and well groomed Nutritional Appearance: well nourished and overweight Orientation: alert, awake and oriented x3 HENMT Head: normal to inspection, no palpable skull fracture, normocephalic and atraumatic Ears: hearing grossly normal bilaterally, external ears normal and TM's normal bilaterally General nose exam: external nose normal Mouth: oral mucosae normal, lip normal and tongue normal Throat: posterior oropharynx normal Eyes General: appearance normal, both eyes and all related structures Visual Daniel: normal visual daniel by confrontation Alignment and Position: alignment normal Periorbital: periorbital findings normal Eyelids: eyelids normal Conjunctivae: conjunctivae normal Pupils: PERRL EOM: EOM intact bilaterally Neck Neck: normal visual inspection, trachea midline and supple Chest Chest: normal inspection of the chest, normal palpation of entire chest wall, no crepitus and no localized rib tenderness Resp Effort & Inspection: normal respiratory effort, able to speak in complete sentences and no respiratory distress Auscultation: clear to auscultation bilaterally, no rales, no rhonchi and no wheezes Cardio Rate: regular rate Rhythm: regular rhythm Heart Sounds: S1 normal and S2 normal Back/Spine/Pelvis Back: no CVA tenderness Cervical Spine: normal cervical lordosis, No cervical ROM normal, collar present, cervical spinal tenderness (fairly diffuse pain maximal near C6) and No step off deformity Thoracic/Lumbar Spine: thoracic and lumbar spine normal to inspection, thoraco- lumbar ROM normal, No thoraco-lumbar ROM limited, No thoraco-lumbar spasm and No thoracic spinal tenderness Skin General skin exam: no rashes or lesions noted Lesions: no lesions Rashes: no rashes Trauma: no lacerations or abrasions Wounds: no wounds Neuro General: patient alert, patient awake, patient oriented x3, gait normal, tone normal and moves all extremities Cranial Nerves: CN's II-XI intact bilaterally Cognition: normal cognition Speech: speech normal Gait: normal gait Motor: muscle tone normal throughout and strength 5/5 throughout Sensory Exam: no sensory deficits noted (no saddle paresthesias) Coordination: [id number] test normal and [id number] test normal Extrem General: normal to inspection, capillary refill normal, no pedal edema and no calf tenderness Right upper extremity: normal to inspection Left upper extremity: normal to inspection, normal capillary refill, no joint enlargement, shoulder/upper arm Details: tenderness Location: of the A-C joint and of the scapula and axillary nerve sensory function normal; no swelling, ROM limited (lacking 20* of extension), no abrasions, no lacerations, no ecchymosis, no crepitus, no penetrating wound, no deformity and no unsual warmth and elbow/forearm Details: normal to inspection, normal ROM and distal pulses intact; no tenderness and no swelling Psych Appearance: grossly normal and well kempt Mental Status: mental status grossly normal Speech and Movement: speech and movement normal
--- NOTE | 2020-10-04 12:15 | DI.CT_ITS ---
EXAM: CT HEAD CERVICAL SPINE WO CLINICAL HISTORY: fall. TECHNIQUE: Imaging Protocol: Axial computed tomography images with coronal and sagittal reformatted images were created and reviewed COMPARISON: No exams were available for comparison FINDINGS: CT Head: Ventricles and Extra axial spaces: Normal in size and morphology for the patient's age. Hemorrhage: None. Cerebral parenchyma: Normal. Midline shift: None. Brainstem/Cerebellum: Normal. Calvarium: Normal. Visualized Paranasal sinuses/Mastoids: There are mucous retention cysts or polyps in the maxillary si nuses. Soft Tissues: Unremarkable. CT Cervical Spine: Bones: No acute fracture or subluxation. There is a round density in the right aspect of the C2 verte bral body likely reflecting a bone island. Mild degenerative changes are seen in the cervical spine. Soft Tissues: Unremarkable. Lung Apices: Clear. IMPRESSION: 1. No acute intracranial process. 2. No acute fracture or subluxation in the cervical spine. 3. Results of this exam have been verbally communicated with provider. RADIATION DOSE DELIVERED: 1,572.05mGy.cm Total DLP DATA REPOSITORY: All CT scans at this facility are submitted to the National Radiology Data Registry (NRDR) Dose Index Registry (DIR) with the [employer] ([employer]). RADIATION OPTIMIZATION: All CT scans at this facility use at least one of these dose optimization te chniques: automated exposure control; mA and/or kV adjustment per patient size (includes targeted exa ms where dose is matched to clinical indication); or iterative reconstruction.
--- NOTE | 2020-10-04 13:13 | DI.RAD_ITS ---
EXAM: XR SHOULDER LT COMPLETE 2+V CLINICAL HISTORY: fall. TECHNIQUE: 2D digital imaging was performed. COMPARISON: No exams were available for comparison FINDINGS: BONES: No acute fracture is present. No bony destructive lesion is seen. A benign-appearing cyst is s een in the humeral head. JOINTS: No dislocation present. Degenerative changes are seen at the acromioclavicular joint. SOFT TISSUE: Normal. IMPRESSION: No acute fracture or dislocation. DATA REPOSITORY: RADIATION DOSE DELIVERED:
[2020-10-04] MEDS: Acetaminophen 500 MG TAB 1000 MG PO (14:23)
[2020-10-04] MEDS: Lidocaine 5% Patch 1 PATCH TP (14:23)
[2020-10-04] MEDS: Ibuprofen 600 MG TAB PO (14:23)
== END 2020-10-04 14:20 | disposition home or self-care (01) ==
PROVIDERS: Emergency Provider Physician Assistant; PCP Nurse Practitioner Family
DX: S40.012A Contusion of left shoulder, initial encounter (principal); M54.2 Cervicalgia; W00.0XXA Fall on same level due to ice and snow, initial encounter; Y99.0 Civilian activity done for income or pay
CPT/HCPCS: 99284; 70450; 72125; 73030

== ENCOUNTER 2021-05-21 23:40 | Outpatient (REF) | payer SELFPAY ==
[2021-05-21 22:04] LABS: HCT 43.8 % (40.0-50.0); HGB 15.2 g/dL (13.5-17.5); MCH 29.5 pg (27.0-33.0); MCHC 34.7 % (32.0-36.0); MPV 9.6 fL (8.0-11.0); Platelet Count 349 10^3/uL (130-400); RBC 5.15 10^6/uL (4.36-5.78); RDW 12.2 % (11.8-14.1); RDW-SD 37.8 fL; WBC 15.75 10^3/uL (4.4-10.8)
[2021-05-21 22:13] LABS: ALT 59 U/L (16-63); AST 27 U/L (15-37); Albumin 4.4 g/dL (3.4-5.0); Alkaline Phosphatase 106 U/L (46-116); Anion Gap 9.1 mmol/L (3-11); BUN 16 mg/dL (7-18); CO2 27.9 mmol/L (21.0-32.0); CREATININE 1.3 mg/dL (0.70-1.30); Calcium 9.4 mg/dL (8.5-10.1); Chloride 101 mmol/L (98-107); Estimated GFR 59.97 (mL/min/1.73m2); Glucose 194 mg/dL (74-106); Sodium 138 mmol/L (136-145); Total Protein 6.7 g/dL (6.4-8.2)
[2021-05-21 22:38] LABS: Hemoglobin A1C 9.7 % (<5.7)
== END 2021-05-21 23:41 | disposition home or self-care (01) ==
LOC: NCHCN 23:40
PROVIDERS: PCP Nurse Practitioner Family; Visit Provider Family Medicine
DX: E11.9 Type 2 diabetes mellitus without complications (principal); N18.30 Chronic kidney disease, stage 3 unspecified
CPT/HCPCS: 80053; 85027; 83036

== ENCOUNTER 2021-06-05 20:04 | Emergency (ER) | payer SELFPAY ==
[2021-06-05 20:19] VITALS: BP 127/65; PULSE 87; RESP 18; TEMP 36.8; O2SAT 97
--- NOTE | 2021-06-05 20:36 | ED.GENADUL_ITS ---
Discharge Plan Disposition Patient Disposition: HOME Condition: Stable Discharge Details Clinical Impression: Laceration of finger of left hand Primary Care Provider: Nicole Spaulding ED Provider: Mira Aquino Home Meds and New Rx's Prescriptions: No Action lamotrigine 150 MG tablet 150 mg PO DAILY RF: 0 cimetidine 800 MG tablet 800 mg PO DAILY RF: 0 aspirin 81 MG tablet,delayed release (DR/EC) 81 mg PO DAILY RF: 0 metformin [Glucophage] 1,000 MG tablet 1,000 mg PO BID RF: 0 levothyroxine [Synthroid] 150 MCG tablet 150 mcg PO DAILY RF: 0 Lantus Solostar U-100 Insulin 100 UNIT/1 ML insulin pen 85 units SQ BID RF: 0 PEN NEEDLES Sub-Q BID RF: 0 insulin lispro [Humalog U-100 Insulin] 100 UNIT/1 ML solution 15 unit SQ PRN RF: 0 atorvastatin 40 MG tablet 40 mg PO DAILY RF: 0 Discharge Instructions Instructions: Finger Laceration (ED) Additional Instructions: Have sutures removed in 7 days. Return sooner or be seen for any signs of infection including increased red streaks, drainage, swelling, pain not relieved by Tylenol ibuprofen. Wash under running soap and water after 12 to 24 hours. Allowed to air dry every day. Do not keep covered and moist. Please take Tylenol or Ibuprofen with food every 4-6 hours as needed for pain and swelling. Referrals: Nicole Spaulding [Primary Care Provider] - Medical Decision Making Wound was anesthetized with 1% lidocaine and 0.5% of bupivacaine. Anesthesia was achieved. Wound was irrigated with normal saline chlorhexidine scrub. Wound was approximated with three simple interrupted four-point 0 Ethilon sutu res patient tolerated well. Instructed on home care and strict return instructions, verbalized understanding. HPI General Mode of arrival: ambulatory . Date/Time Provider Initiated Documentation: 06/05/21 20:13 . Limitations to Documentation: no limitations . Information obtained by: patient . HPI Narrative: 46-year-old male presents to the ER chief complaint of left index finger laceration which occurred roughly 30 minutes prior to arrival. Patient reports he was trying to cut open a she was back with a knife and sliced his finger. He has full range of motion noted to the digit and sensation is intact. He is a diabetic and aspirin. Bleeding was controlled upon arrival with pressure. Related Data Home Medications Medication Instructions Recorded Confirmed Lantus Solostar U-100 Insulin 85 units SQ BID 01/16/13 06/05/21 Pen [place] SUB-Q BID 01/16/13 09/11/14 aspirin 81 mg PO DAILY tab-cap 01/16/13 06/05/21 cimetidine 800 mg PO DAILY tab-cap 01/16/13 06/05/21 lamotrigine 150 mg PO DAILY tab-cap 01/16/13 06/05/21 levothyroxine [Synthroid] 150 mcg PO DAILY tab-cap 01/16/13 06/05/21 metformin [Glucophage] 1,000 mg PO BID tab-cap 01/16/13 06/05/21 insulin lispro [Humalog U-100 15 unit SQ PRN vial 01/25/13 06/05/21 Insulin] atorvastatin 40 mg PO DAILY tab-cap 07/21/16 06/05/21 Allergies Allergy/AdvReac Type Severity Reaction Status Date / Time No Known Allergies Allergy Unverified 06/05/21 20:23 General Stated Complaint: Laceration RENÉ: 4 Review of Systems All systems reviewed & are unremarkable except as noted in HPI and below Integumentary/Breasts Skin/Breast: Reports wounds PFSH Surgical History Cholecystectomy Open Carpal Tunnel release R Social History Smoking/Tobacco Use Status: Former Tobacco Use Smoking risk assessment performed?: Yes Alcohol Intake: current Alcohol Intake frequency: a few times a month Drug use: Never Substance use type: does not use Do you feel safe at home: Yes Do you feel safe in your relationship?: Yes Exam Extrem Hand/finger images: 1. 1 cm Laceration partial thickness Course Vital Signs Vital signs: Vital Signs Temperature 36.8 C 06/05/21 20:19 Pulse 87 06/05/21 20:19 Respiratory Rate 18 06/05/21 20:19 Blood Pressure 127/65 06/05/21 20:19 Pulse Oximetry 97 06/05/21 20:19 Temperature 36.8 C 06/05/21 20:19 Temperature Source Skin 06/05/21 20:19 Pulse 87 06/05/21 20:19 Respiratory Rate 18 06/05/21 20:19 Respiratory Effort Non-Labored 06/05/21 20:24 Blood Pressure 127/65 06/05/21 20:19 Blood Pressure Position Sitting 06/05/21 20:19 Pulse Oximetry 97 06/05/21 20:19 Oxygen Delivery Method Room Air 06/05/21 20:19 Oxygen Flow Rate 0 06/05/21 20:19 Pain Level 6 06/05/21 20:27 Procedures Laceration Laceration 1: Site: hand Side (If applicable): left Size (cm): 1 Description: linear Depth: simple, single layer Local Anesthetic: Lidocaine 1% and Bupivicaine 0.5% Amount of anesthesia used (mL): 1 Pre-repair: wound explored, irrigated extensively and deep structures intact Skin layer closed with: nylon Size (cm): 4-0 Number of sutures: 3 Technique: simple, interrupted
[2021-06-05] MEDS: Lidocaine 1% Multi-Dose 50 ML VIAL (21:15)
== END 2021-06-05 22:08 | disposition home or self-care (01) ==
PROVIDERS: Emergency Provider Registered Nurse Emergency; PCP Nurse Practitioner Family
DX: S61.211A Laceration without foreign body of left index finger without damage to nail, initial encounter (principal); W26.0XXA Contact with knife, initial encounter
CPT/HCPCS: 12001; 90471

== ENCOUNTER 2021-06-13 18:21 | Emergency (ER) | payer SELFPAY ==
[2021-06-13 18:26] VITALS: BP 124/70; PULSE 79; RESP 18; TEMP 36.9; O2SAT 98
--- NOTE | 2021-06-13 18:41 | ED.GENADUL_ITS ---
Discharge Plan Disposition Patient Disposition: HOME Condition: Stable Discharge Details Clinical Impression: Visit for suture removal Primary Care Provider: Nicole Spaulding ED Provider: Alex Gray Home Meds and New Rx's Prescriptions: Continued lamotrigine 150 MG tablet 150 mg PO DAILY RF: 0 cimetidine 800 MG tablet 800 mg PO DAILY RF: 0 aspirin 81 MG tablet,delayed release (DR/EC) 81 mg PO DAILY RF: 0 metformin [Glucophage] 1,000 MG tablet 1,000 mg PO BID RF: 0 levothyroxine [Synthroid] 150 MCG tablet 150 mcg PO DAILY RF: 0 Lantus Solostar U-100 Insulin 100 UNIT/1 ML insulin pen 85 units SQ BID RF: 0 PEN NEEDLES Sub-Q BID RF: 0 insulin lispro [Humalog U-100 Insulin] 100 UNIT/1 ML solution 15 unit SQ PRN RF: 0 atorvastatin 40 MG tablet 40 mg PO DAILY RF: 0 Medical Decision Making 46 yo male who had sutures placed on anterior distal left index finger a week ago and here for suture removal. Denies pain, drainage, redness. Has well healed wounds, nursing removed sutures without incident. No erythema, tenderness and bashir s full range of motion. No indication for infection. Discussed return precautions for infection though unlikely at this time Differential Diagnosis Differential Diagnosis: suture removal Medical Records Medical records reviewed: Yes I reviewed the patient's medical records. HPI General Mode of arrival: ambulatory . Date/Time Provider Initiated Documentation: 06/13/21 18:41 . Limitations to Documentation: no limitations . Information obtained by: patient . History of Present Illness 46 year old M presents to the emergency department with the chief complaint of suture removal, and it has been constant. No relieving factors improve symptom(s), No exacerbating factors reported . Patient notes no other symptoms.. Patient did receive the following treatments prior to arrival, none Related Data Home Medications Medication Instructions Recorded Confirmed Lantus Solostar U-100 Insulin 85 units SQ BID 01/16/13 06/13/21 Pen [place] SUB-Q BID 01/16/13 09/11/14 aspirin 81 mg PO DAILY tab-cap 01/16/13 06/13/21 cimetidine 800 mg PO DAILY tab-cap 01/16/13 06/13/21 lamotrigine 150 mg PO DAILY tab-cap 01/16/13 06/13/21 levothyroxine [Synthroid] 150 mcg PO DAILY tab-cap 01/16/13 06/13/21 metformin [Glucophage] 1,000 mg PO BID tab-cap 01/16/13 06/13/21 insulin lispro [Humalog U-100 15 unit SQ PRN vial 01/25/13 06/13/21 Insulin] atorvastatin 40 mg PO DAILY tab-cap 07/21/16 06/13/21 Allergies Allergy/AdvReac Type Severity Reaction Status Date / Time No Known Allergies Allergy Unverified 06/13/21 18:27 General Stated Complaint: SutureRem RENÉ: 5 Review of Systems All systems reviewed & are unremarkable except as noted in HPI and below Constitutional Constitutional: Denies chills, Denies fever(s) and Denies weakness Cardiovascular Cardiovascular: Denies chest pain and Denies dyspnea Respiratory Respiratory: Denies cough and Denies dyspnea Gastrointestinal Gastrointestinal: Denies abdominal pain, Denies nausea and Denies vomiting Musculoskeletal Musculoskeletal: Denies joint swelling Neurologic Neurologic: Denies weakness PFSH Surgical History Cholecystectomy Open Carpal Tunnel release R Social History Smoking/Tobacco Use Status: Former Tobacco Use Smoking risk assessment performed?: Yes Alcohol Intake: current Alcohol Intake frequency: a few times a month Drug use: Never Substance use type: does not use Do you feel safe at home: Yes Do you feel safe in your relationship?: Yes Exam Const General: no acute distress Orientation: alert HENMT Head: normal to inspection Ears: external ears normal General nose exam: external nose normal Mouth: moist mucous membranes Eyes General: appearance normal, both eyes and all related structures Neck Neck: normal visual inspection Resp Effort & Inspection: normal respiratory effort and able to speak in complete sentences Cardio Rate: regular rate Skin General skin exam: no rashes or lesions noted Neuro General: patient alert and patient oriented x3 Extrem General: capillary refill normal Psych Mental Status: mental status grossly normal Course Vital Signs Vital signs: Vital Signs Temperature 36.9 C 06/13/21 18:26 Pulse 79 06/13/21 18:26 Respiratory Rate 18 06/13/21 18:26 Blood Pressure 124/70 06/13/21 18:26 Pulse Oximetry 98 06/13/21 18:26 Temperature 36.9 C 06/13/21 18:26 Pulse 79 06/13/21 18:26 Respiratory Rate 18 06/13/21 18:26 Respiratory Effort Non-Labored 06/13/21 18:28 Blood Pressure 124/70 06/13/21 18:26 Pulse Oximetry 98 06/13/21 18:26 Pain Level 0 06/13/21 18:26 PAWSS Have you Been Recently Intoxicated or Drunk Within the Last 30 days?: No Have you Ever Experienced Previous Episodes of Alcohol Withdrawal?: No Have you ever Experienced Withdrawal Seizures?: No Have you ever Experienced Delirium Tremens(DT)s?: No Have you ever undergone Alcohol Rehabilitation Treatment (i.e, inpt ot outpatient treatment programs)?: No Have you ever Experienced Blackouts?: No Have you ever Combined Alcohol with other Downers within the last 90 days?: No Have you ever Combined Alcohol with any other Substance of Abuse during the last 90 days?: No Positive Blood Alcohol level on Presentation? [PCS.BAL]: No Evidence of Increased Autonomic Activity (i.e. HR>120, tremor, sweating, agitation, nausea)?: No Result: 0
== END 2021-06-13 18:54 | disposition home or self-care (01) ==
LOC: ER 18:47
PROVIDERS: Emergency Provider Emergency Medicine; PCP Nurse Practitioner Family
DX: S61.211D Laceration without foreign body of left index finger without damage to nail, subsequent encounter (principal); W26.0XXD Contact with knife, subsequent encounter; Z48.02 Encounter for removal of sutures

== ENCOUNTER 2021-11-19 16:35 | Outpatient (REF) | payer SELFPAY ==
[2021-11-19 21:49] LABS: Anion Gap 10.7 mmol/L (3-11); BUN 12 mg/dL (7-18); CO2 28.3 mmol/L (21.0-32.0); CREATININE 1.4 mg/dL (0.70-1.30); Calcium 9.7 mg/dL (8.5-10.1); Chloride 101 mmol/L (98-107); Estimated GFR 55.05 (mL/min/1.73m2); Glucose 109 mg/dL (74-106); Potassium 3.9 mmol/L (3.5-5.1); Sodium 140 mmol/L (136-145)
== END 2021-11-19 16:36 | disposition home or self-care (01) ==
LOC: NCHCN 16:35
PROVIDERS: PCP Nurse Practitioner Family; Visit Provider Family Medicine
DX: E11.9 Type 2 diabetes mellitus without complications (principal); I10 Essential (primary) hypertension
CPT/HCPCS: 80048